=== PATIENT | female | born 1995 | race Caucasian/White ===

== ENCOUNTER 2017-11-06 01:10 | Emergency (ER) | END 2017-11-06 02:15 | disposition home or self-care (01) ==

== ENCOUNTER 2018-09-04 19:14 | Emergency (ER) | payer OTHER ==
[~2018-09-04] VITALS: Ht 152.4 cm; Wt 116.7 kg
[~2018-09-04 19:14] MED LIST: AMOX500C2 PO; CETI10CA PO; IBUP-1542 PO
[2018-09-04 19:30] VITALS: Ht 152.4 cm; Wt 116.7 kg
[2018-09-04] MEDS ORDERED: KETOROLAC 30 MG INJ IM STA (21:37)
[2018-09-04] MEDS ORDERED: ACET-141 PO (22:22)
[2018-09-04] MEDS ORDERED: NITR-58 PO (22:22)
[2018-09-04] MEDS ORDERED: IBUP-1542 PO (22:22)
--- NOTE | 2018-09-04 22:26 | ERD ---
ER Documentation Chief Complaint Chief Complaint HERNANDEZ X'S 4 DAYS, R EYE DROOPING X'S 1 DAY, NO NEURO DEFICIT HPI 23-year-old female with history of migraine headaches presents for headache ti mes 4 days. She also states she has right eye drooping times 1 day. She also states she has lower abdominal pain for the last month which has been worsening for the last few days. She notes mild dysuria. Also states she has fever. She denies runny nose or cough. Denies vaginal bleeding or vaginal discharge. ROS All systems reviewed and are negative except as per history of present illness. Medications Home Meds Active Scripts Acetaminophen* (Acetaminophen*) 500 MG Extra Strength Tablet, 500 MG PO Q4H PRN for PAIN AND OR ELEVATED TEMP, #30 TAB Prov:NDIAYEKORIN VAZQUEZ 09/04/18 Ibuprofen* (Motrin*) 600 Mg Tab, 600 MG PO Q6H PRN for PAIN AND OR ELEVATED TEMP, #30 TAB Prov:KORIN NDIAYE DO 09/04/18 Nitrofurantoin Monohyd Macrocr* (Macrobid*) 100 Mg Capsr, 100 MG PO BID for uti for 5 Days, #10 CAP Prov:KORIN NDIAYE DO 09/04/18 Cetirizine Hcl* (Zyrtec*) 10 Mg Capsule, 10 MG PO DAILY, #30 TAB.CHEW Prov:TARA CHAU [facility] [employer] 11/06/17 Amoxicillin* (Amoxicillin*) 500 Mg Cap, 500 MG PO TID for 10 Days, CAP Prov:TARA CHAU. [facility] [employer] 11/06/17 Ibuprofen* (Motrin*) 600 Mg Tab, 600 MG PO Q6H PRN for PAIN AND OR ELEVATED TEMP, #30 TAB Prov:TARA CHAU [facility] [employer] 11/06/17 Allergies Allergies: Coded Allergies: No Known Allergy (Unverified , 11/06/17) PMhx/Soc History of Surgery: Yes (Appedectomy) Anesthesia Reaction: No Hx Neurological Disorder: No Hx Respiratory Disorders: No Hx Cardiac Disorders: No Hx Psychiatric Problems: No Hx Miscellaneous Medical Probl: No Hx Alcohol Use: No Hx Substance Use: No Hx Tobacco Use: No Smoking Status: Never smoker Physical Exam Vitals Vital Signs Date Temp Pulse Resp B/P (MAP) Pulse Ox O2 O2 Flow FiO2 Time Delivery Rate 09/04/18 99.9 88 20 169/96 99 19:30 (120) Physical Exam Const: No acute distress Head: Atraumatic, no temporal area tenderness to palpation Eyes: Normal Conjunctiva, pupils equal, round, reactive to light bilaterally ENT: Normal External Ears, bilateral tympanic membrane intact without erythema or bulging noted, Nose and Mouth examination normal. No tonsillar swe lling or exudate noted Neck: Full range of motion. No meningismus, no bruits noted Resp: Clear to auscultation bilaterally Abd: Soft, nontender, nondistended, positive bowel sounds Cardio: Regular rate and rhythm, no murmurs, bilateral radial and dorsalis pedis pulses intact Skin: No petechiae or rashes Ext: No cyanosis, or edema, 5 out of 5 muscular bilateral upper and lower extremities Neur: Awake and alert, bilateral upper and lower extremity sensation intact Psych: Normal Mood and Affect Results 24 hrs Laboratory Tests Test 09/04/18 21:45 Urine Color YELLOW Urine Clarity SLIGHTLY CLOUDY Urine pH 7.0 Urine Specific Purcell 1.021 Urine Ketones NEGATIVE mg/dL Urine Nitrite NEGATIVE mg/dL Urine Bilirubin NEGATIVE mg/dL Urine Urobilinogen 2+ mg/dL Urine Leukocyte Esterase TRACE Joyce/ul Urine Microscopic RBC 2 /HPF Urine Microscopic WBC 22 /HPF Urine Squamous Epithelial Cells MODERATE /HPF Urine Bacteria FEW /HPF Urine Mucus FEW /HPF Urine Hemoglobin NEGATIVE mg/dL Urine Glucose NEGATIVE mg/dL Urine Total Protein NEGATIVE mg/dl Urine Test NEGATIVE Current Medications Medications Dose Sig/Blanka Start Time Status Last (Trade) Ordered Route PRN Stop Time Admin Dose Reason Admin Ketorolac 30 mg ONCE STAT 09/04/18 DC 09/04/18 Tromethamine IM 21:37 09/04/18 22:04 (Toradol) 21:38 Procedures/MDM Medical Decision Making: Differential diagnosis includes but not limited to primary headache, subarachnoid hemorrhage, meningitis, temporal arteritis, glaucoma, hypertension, cerebral ischemia, carotid or vertebral arterial dissection, brain tumor. Patient appeared well on physical examination, nontoxic appearing. No history of fever. There is low suspicion for meningitis. Given no temporal area tenderness to palpation, low suspicion for temporal arteritis. Patient has no vision changes and pupils are reactive bilaterally, low suspicion for glaucoma. There is also no focal neurologic deficits to suggest a brain tumor. Patient has normal sensation and muscle strength, low suspicion for cerebral ischemia. Given headache is similar to prior headaches, patient possibly has a primary headache. In the ER patient given Toradol Symptoms improved with treatment. UA showed infection. Urine test was negative Patient given prescription for supportive medication(s) and Macrobid. Patient advised to follow up with PCP in 1-2 days. Patient advised to return to ED for new or worsening symptoms. Patient stable on discharge from the ED. Disclaimer: Inadvertent spelling and grammatical errors are likely due to EHR/dictation software use and do not reflect on the overall quality of patient care. Also, please note that the electronic time recorded on this note does not necessarily reflect the actual time of the patient encounter. Departure Diagnosis: Primary Impression: Headache Headache type: unspecified Headache chronicity pattern: unspecified pattern Intractability: not intractable Qualified Codes: R51 - Headache Additional Impression: UTI (urinary tract infection) Urinary tract infection type: acute cystitis Hematuria presence: without hematuria Qualified Codes: N30.00 - Acute cystitis without hematuria Condition: Fair Patient Instructions: Understanding Urinary Tract Infections (UTIs), Self-Care for Headaches Referrals: [facility] YOU HAVE RECEIVED A MEDICAL SCREENING EXAM AND THE RESULTS INDICATE THAT YOU DO NOT HAVE A CONDITION THAT REQUIRES URGENT TREATMENT IN THE EMERGENCY DEPARTMENT. FURTHER EVALUATION AND TREATMENT OF YOUR CONDITION CAN WAIT UNTIL YOU ARE SEEN IN YOUR DOCTORS OFFICE WITHIN THE NEXT 1-2 DAYS. IT IS YOUR RESPONSIBILITY TO MAKE AN APPOINTMENT FOR FOLOW-UP CARE. IF YOU HAVE A PRIMARY DOCTOR --you should call your primary doctor and schedule an appointment IF YOU DO NOT HAVE A PRIMARY DOCTOR YOU CAN CALL OUR PHYSICIAN REFERRAL HOTLINE AT IF YOU CAN NOT AFFORD TO SEE A PHYSICIAN YOU CAN CHOSE FROM THE FOLLOWING [facility] [address] [facility] [address] [facility] [facility] [address] [facility] [address] [facility] [address] [facility]. [facility]. [address] Additional Instructions: Call your primary care doctor TOMORROW for an appointment during the next 1-2 days.See the doctor sooner or return here if your condition worsens before your appointment time. KORIN NDIAYE DO Sep 04, 2018 22:26
[2018-09-04 22:41] VITALS: BP 165/95; PULSE 82; RESP 18
== END 2018-09-04 22:42 | disposition home or self-care (01) ==
LOC: FTE 19:14
DX: N30.00 Acute cystitis without hematuria (principal)
CPT/HCPCS: 81001; 84703; J1885; 96372